=== PATIENT | male | born 1970 | race Caucasian/White ===

== ENCOUNTER 2017-10-09 08:35 | Day surgery (SDC) | payer BC ==
--- NOTE | 2017-10-09 08:04 | HP ---
DATE OF SURGERY: 10/09/2017 HISTORY OF PRESENT ILLNESS: The patient is a 47 year-old going to be 48 this year with history of diverticulitis episode a few months ago and no prior colonoscopy. No bloody stools. No change in bowel movements. No family history of colon cancer. He is in need of screening colonoscopy as he turns 48 this year. PAST MEDICAL HISTORY: Hypertension/ PAST SURGICAL HISTORY: None. MEDICATIONS: He takes blood pressure pill the name of which he did not know at the time of the office visit. ALLERGIES: NKDA. FAMILY HISTORY: Negative for colon cancer. SOCIAL HISTORY: He denies smoking currently. REVIEW OF SYSTEMS: Twelve systems reviewed per admission assessment. No chest pain or palpitations other systems negative or noncontributory as above and per preadmission questionnaire. PHYSICAL EXAMINATION: GENERAL: No acute distress. HEENT: Sclerae nonicteric. NECK: No JVD. CHEST: Equal excursion, nonlabored breathing. CVS: Regular rate and rhythm. ABDOMEN: Soft. No peritoneal signs. EXTREMITIES: No significant edema. NEURO: Alert, oriented, moving extremities symmetrically. No gross motor deficits noted. RECTAL: Deferred timed to endoscopy exam. IMPRESSION: A gentleman with history of diverticular episode a few months ago. He is going to be 48 this year. I feel he would benefit from screening colonoscopy. The risks and benefits explained in detail including but not limited to bleeding or infection, small risk of bowel injury or perforation possibly requiring open procedure, small risk of missed or nondiagnosis or incomplete exam possibly requiring barium enema, other studies or procedures or procedures, general risk of anesthesia or sedation but not limited to. He understands and agrees to the planned procedure and will proceed with outpatient screening colonoscopy.
[2017-10-09] MEDS ORDERED: Ketamine HCl 50 MG/ML IV ONE (08:36)
[2017-10-09] MEDS ORDERED: DIPRIVAN 200 MG/20 ML IV ONE (08:36)
[2017-10-09] MEDS ORDERED: Lactated Ringers 1,000 ML IV ONE ×2 (08:42→11:55)
[2017-10-09] MEDS ORDERED: Lactated Ringers 1,000 ML IV SCH (09:00)
[2017-10-09 13:12] VITALS: O2SAT 97
[2017-10-09 13:16] VITALS: BP 128/70; PULSE 76
--- NOTE | 2017-10-10 07:54 | OP ---
SURGERY DATE/TIME: 10/09/2017 1045 PREOPERATIVE DIAGNOSIS: Need screening colonoscopy, age 48 this year as well as history of some diverticular episode in the past. POSTOPERATIVE DIAGNOSES: 1) Tortuous colon. 2) Small sigmoid colon polyp. 3) Small raised lesion versus hyperplastic lesion transverse colon and rectum. 4) Mild diverticulosis. 5) Small internal and external hemorrhoids. PROCEDURES: 1) Colonoscopy to cecum. 2) Hot snare polypectomy of small sigmoid colon polyp. 2) Hot biopsy removal of small early polyp versus raised lesion or hyperplastic lesion rectum, small raised lesion transverse colon removed with hot biopsy forceps. SURGEON: Dr. Michael Jara. ANESTHESIA: MAC. ESTIMATED BLOOD LOSS: Minimal. INDICATIONS: As noted above. Risks and benefits explained in detail but not limited to and consent obtained. DESCRIPTION OF PROCEDURE AND FINDINGS: The patient is taken to the operating room. MAC anesthesia introduced. After official time out and no disagreement with planned procedure, digital rectal exam did not reveal any rectal masses. Video colonoscope inserted and passed up the tortuous sigmoid, descending, transverse colon, descending colon to the cecum. It is quite a tortuous colon requiring positioning on his back. The scope was able to reach the cecum. Appendiceal orifice and valve well visualized. Prep overall was somewhat poor with some areas of liquidy and semisolid stool limiting exam this is suction irrigated as well as possible but did limit the exam for very small lesions. On withdrawal of the scope there were no signs of any large polyps, masses or obstructing lesions. There is a small vague raised area in the transverse colon whether this is just some hyperplasia of mucosa or not it was removed with hot biopsy forceps with brief bursts of cautery. Good hemostasis was noted. Otherwise the scope pulled around to the left colon. It had some mild diverticulosis. The sigmoid colon had a 3 to 3.5 mm polyp that was removed with hot snare polypectomy with brief bursts of cautery. Good hemostasis was noted. Otherwise small early polyp versus hyperplastic lesion in the rectum was removed with hot biopsy forceps with brief bursts of cautery. There had been some brief ooze at this biopsy site that lasted for a few seconds but appeared to have good hemostasis. Otherwise he had some small internal and external hemorrhoids. There was no signs of any other large polyps, masses or obstructing lesion. Await final path results to determine the timing of follow up endoscopy. Findings discussed with the family out in the waiting area.
== END 2017-10-09 12:25 | disposition home or self-care (01) ==
LOC: SDC 08:35
PROVIDERS: ATTEND Surgery
DX: Z12.11 Encounter for screening for malignant neoplasm of colon (principal); Q43.8 Other specified congenital malformations of intestine; K63.5 Polyp of colon; K63.9 Disease of intestine, unspecified
CPT/HCPCS: 88305; J2704

== ENCOUNTER 2022-03-14 08:10 | Day surgery (SDC) | payer BC ==
--- NOTE | 2022-03-14 08:27 | HP ---
DATE OF SURGERY: 03/14/2022 HISTORY OF PRESENT ILLNESS: The patient is a 51-year-old with history of polyps, no bloody stools, no change in bowel movements. Family history negative for colon cancer. History of polyps is in need of follow up screening colonoscopy. PAST MEDICAL HISTORY: Hypertension. PAST SURGICAL HISTORY: No prior surgery. He has had colonoscopy in the past. MEDICATIONS: He takes some blood pressure medication name of which he did not know. ALLERGIES: NKDA. FAMILY HISTORY: Negative for colon cancer. SOCIAL HISTORY: No smoking. REVIEW OF SYSTEMS: Fourteen systems reviewed. No chest pain or palpitations. Other systems negative or noncontributory as above and per preadmission questionnaire. PHYSICAL EXAMINATION: GENERAL: No acute distress. HEENT: Sclerae nonicteric. NECK: No JVD. CHEST: Equal excursion, nonlabored breathing. CVS: Regular rate and rhythm. ABDOMEN: Soft. EXTREMITIES: No significant edema. NEURO: Alert, oriented, moving extremities symmetrically. RECTAL: Deferred timed to endoscopy exam. PSYCH: Appropriate mood and affect. IMPRESSION: History of polyps, need follow up screening colonoscopy and I feel he is a candidate. He is shown the risk sheet explained the procedure in detail including bleeding or infection, risk of bowel injury or perforation possibly requiring further procedure, risk of missed or nondiagnosis or incomplete exam possibly requiring barium enema, other studies or procedures, general risk of anesthesia or sedation, risk of bowel prep or sedation but not limited to, consent obtained. Will proceed with outpatient follow up screening colonoscopy.
[2022-03-14] MEDS ORDERED: Lactated Ringers 1,000 ML IV SCH (08:30)
[2022-03-14] MEDS ORDERED: DIPRIVAN 200 MG/20 ML IV ONE ×2 (10:41→11:38)
[2022-03-14] MEDS ORDERED: Versed 2 MG/2 ML Injection ONE (10:41)
[2022-03-14 12:34] VITALS: BP 134/76; PULSE 73; O2SAT 96
--- NOTE | 2022-03-14 12:54 | OP ---
SURGERY DATE/TIME: 03/14/2022 1132 PREOPERATIVE DIAGNOSIS: History of polyps in the past, need follow up screening colonoscopy. POSTOPERATIVE DIAGNOSES: 1) Small sigmoid colon polyps. 2) Pancolonic diverticulosis. 3) Fair bowel prep. 4) ASA Class II. 5) Withdrawal time approximately 6 minutes and 30 seconds. PROCEDURES: 1) Colonoscopy to cecum. 2) Hot biopsy polypectomy small early sigmoid colon polyp versus hyperplastic lesion, path pending. SURGEON: Dr. Michael Jara. ANESTHESIA: MAC. ESTIMATED BLOOD LOSS: Minimal. INDICATIONS: As noted above. Risks and benefits explained in detail but not limited to and consent obtained. DESCRIPTION OF PROCEDURE AND FINDINGS: The patient is taken to the endoscopy room. MAC anesthesia induced. After official time out and no disagreement with planned procedure, digital rectal exam did not reveal any rectal masses. He had some minimal internal hemorrhoids. Video colonoscope inserted and passed up through the tortuous slightly tortuous descending, transverse and ascending colon. With external pressure the scope was passed to the cecum. Appendiceal orifice and valve well visualized. Prep overall is fair, a little bit of liquidy semisolid stool slightly limiting the exam for very small lesions this is suctioned irrigated as clear as possible. The scope is carefully withdrawn over the next 6 1/2 minutes at least suctioning and irrigating out liquidy stool as well as possible. He did have diverticula throughout the entire colon. They were a little more concentrated in the left colon. The scope is carefully pulled back. There were no signs of any large polyps, masses or any other obstructing lesions. There was a small 2 to 2.5 mm polyp versus hyperplastic lesion sigmoid colon removed with hot biopsy forceps. Good hemostasis noted. Otherwise he had diverticulosis. No signs of any other large polyps, masses or obstructing lesions. The scope is withdrawn. The patient tolerated the procedure well. I will see if he has family to discuss the findings with.
== END 2022-03-14 12:40 | disposition home or self-care (01) ==
LOC: SDC 08:10
PROVIDERS: ATTEND Surgery
DX: Z09 Encounter for follow-up examination after completed treatment for conditions other than malignant neoplasm (principal); Z86.010 Personal history of colon polyps; D12.5 Benign neoplasm of sigmoid colon; K57.30 Diverticulosis of large intestine without perforation or abscess without bleeding; K64.8 Other hemorrhoids
CPT/HCPCS: J2250; J2704

== ENCOUNTER 2024-08-09 05:59 | Day surgery (SDC) | payer BC ==
[2024-08-09] MEDS: Lactated Ringers 1,000 ML IV SCH (06:13)
[2024-08-09 06:45] LABS: Calcium 8.8 mg/dL (8.4-10.2); Creatinine 1 0.72 mg/dL (0.66-1.25); EST GLOMERULAR FILTRATION RATE 107.2 ML/MIN; Potassium 4.1 mmol/L (3.5-5.1)
[2024-08-09 06:59] VITALS: RESP 16
[2024-08-09] MEDS ORDERED: propofoL IV ONE ×2 (07:02→07:13)
[2024-08-09 07:47] VITALS: O2SAT 95
[2024-08-09 08:02] VITALS: BP 115/71; PULSE 67; TEMP 97.6
--- NOTE | 2024-08-09 14:46 | OP ---
SURGERY DATE/TIME: 08/09/2024 [id number] PREOPERATIVE DIAGNOSIS: Abdominal pain for 2 months. POSTOPERATIVE DIAGNOSIS: Mild gastritis. PROCEDURE: Esophagogastroduodenoscopy with cold forceps biopsy. SURGEON: Hamilton Kay MD ANESTHESIA: Medications were given by the anesthesia department. INDICATIONS: The patient is a 54-year-old white male patient with complaints of abdominal pain for the past 2 months. He reported in the last couple of days things have actually gotten somewhat better. He was placed on some Protonix. The patient now complains of his pain mostly in his left lower quadrant. He has had no change in his bowels. He did have previous colonoscopy that was essentially normal not too long ago. The patient was felt to need to have endoscopic evaluation. He was appraised of the risks of the procedure including risk of perforation, phlebitis, untoward reaction to medication, bleeding, and missed lesions. The patient verbalized his understanding and desire to have procedure performed. DESCRIPTION OF PROCEDURE AND FINDINGS: The patient was given medication by the anesthesia department. He had continuous pulse oximetry, ECG monitoring, and intermittent blood pressure monitoring during the examination. He was placed in the left lateral decubitus position. A bite block was placed, and a flexible Olympus gastroscope was used to intubate the oropharynx. A view of the larynx was obtained and was normal. The scope was easily introduced into the esophagus, which appeared to be essentially normal throughout its length. The stomach was entered where normal gastric rugal folds were seen, and each distended nicely with insufflation of air. The scope was passed along the greater curvature of the stomach to the antrum. The pylorus was encountered and intubated. The duodenum was inspected and found to be normal. Scope was withdrawn towards the stomach again. A retroflexed view was obtained of the lesser curvature, fundus, and cardia regions of the stomach, and these appeared to be essentially normal. The scope was then redirected towards the gastric antrum where biopsies were obtained to rule out the presence of Helicobacter pylori-type organisms. The scope was then removed from the patient, who tolerated the procedure well and was sent back to outpatient recovery in good condition.
== END 2024-08-09 08:17 | disposition home or self-care (01) ==
LOC: SDC 05:59
PROVIDERS: ATTEND Family Medicine
DX: K29.70 Gastritis, unspecified, without bleeding (principal); R10.9 Unspecified abdominal pain
CPT/HCPCS: 36415; 80048; 93005; J2704